=== PATIENT | male | born 1995 | race Two or more races ===

== ENCOUNTER 2016-11-25 19:52 | Emergency (ER) | payer OTHER ==
[~2016-11-25] VITALS: Ht 165.1 cm; Wt 72.6 kg
[2016-11-25] MEDS ORDERED: fentaNYL PF VIAL 100 MCG/2 ML VIAL IV PRN (20:30)
[2016-11-25 20:33] LABS: BASO % 0 % (0-3); EOS % 0 % (0-3); HEMATOCRIT 39.3 % (39.0-53.0); HEMOGLOBIN 13.5 g/dL (13.0-17.5); LYMPH # 1.2 x10^3/uL (1.0-4.8); LYMPH % 10 % (24-48); MEAN CORPUSCULAR HEMOGLOBIN 27 pg (25-35); MEAN CORPUSCULAR HGB CONC 34 g/dL (31-37); MEAN CORPUSCULAR VOLUME 78 fL (79-100); MONO % 9 % (0-9); NEUT % 80 % (31-73); PLATELET COUNT 206 x10^3/uL (140-400); RED BLOOD COUNT 5.08 x10^6/uL (4.30-5.70); WHITE BLOOD COUNT 11.5 x10^3/uL (4.0-11.0)
[2016-11-25 20:34] LABS: BILIRUBIN,URINE NEGATIVE (NEG); GLUCOSE,URINE NEGATIVE (NEG); NITRITE,URINE NEGATIVE (NEG); PROTEIN,URINE NEGATIVE (NEG-TRACE); UROBILINOGEN,URINE 0.2 mg/dL (0.2 mg/dL)
[2016-11-25 20:42] LABS: BACTERIA,URINE FEW /HPF (0-FEW); RBC,URINE 20-40 /HPF (0-2); SQUAMOUS EPITHELIAL CELL,UR FEW /LPF
--- NOTE | 2016-11-25 20:43 | PHYS DOC ---
Past Medical History Past Medical History: Other Additional Past Medical Histor: k stones Past Surgical History: No Surgical History Alcohol Use: Occasionally Drug Use: None Adult General Chief Complaint Chief Complaint: ABDOMINAL PAIN HPI HPI Patient is a 21 year old male brought to the ED by family members with a complaint of left flank pain which began today and is a 10 out of 10. Patient had a kidney stone one time about a year ago and this reminds him of that pain. Patient has had no vomiting or diarrhea. The pain is in the left flank and radiates somewhat to the left mid to low abdomen. He's had no urinary complaints. No fever. Patient does not speak [place] but a family member translates at the bedside. Review of Systems Review of Systems Constitutional: Denies fever or chills [] Eyes: Denies change in visual acuity, redness, or eye pain [] HENT: Denies nasal congestion or sore throat [] Respiratory: Denies cough or shortness of breath [] Cardiovascular: Denies chest pain GI: As in history of present illness : Denies dysuria or hematuria [] Musculoskeletal: Denies back pain or joint pain [] Integument: Denies rash or skin lesions [] Neurologic: Denies headache, focal weakness or sensory changes [] Current Medications Current Medications Current Medications Medications (Trade) Dose Ordered Sig/Elissa Start Time Stop Time Status Last Admin Dose Admin Fentanyl Citrate (Fentanyl 2ml Vial) 50 mcg PRN Q15MIN PRN 11/25/16 20:30 11/26/16 20:29 11/25/16 20:44 50 MCG Ketorolac Tromethamine (Toradol) 30 mg 1X ONCE 11/25/16 21:00 11/25/16 21:01 DC 11/25/16 20:44 30 MG Sodium Chloride 1,000 ml @ 1,000 mls/hr Q1H 11/25/16 21:00 11/25/16 21:59 11/25/16 20:44 1,000 MLS/HR Allergies Allergies Allergies Coded Allergies Type Severity Reaction Last Updated Verified No Known Drug Allergies 11/25/16 No Physical Exam Physical Exam Constitutional: Well developed, well nourished, no acute distress, non-toxic appearance. Ambulatory, alert, mentating normally. HENT: Normocephalic, atraumatic, bilateral external ears normal, nose normal. [] Eyes: conjunctiva normal, no discharge. [] Neck: Normal range of motion, no stridor. [] Cardiovascular:Heart rate regular rhythm, no murmur [] Lungs & Thorax: Bilateral breath sounds clear to auscultation [] Abdomen: Bowel sounds normal, soft, no tenderness, no masses, no pulsatile masses. Abdomen entirely benign without tenderness at all. Skin: Warm, dry, no erythema, no rash. [] Back: No tenderness, no CVA tenderness. [] Extremities: No tenderness, no cyanosis, no clubbing, ROM intact, no edema. [] Neurologic: Alert and oriented X 3, normal motor function, normal sensory function, no focal deficits noted. [] Current Patient Data Vital Signs Vital Signs Date Time Temp Pulse Resp B/P (MAP) Pulse Ox O2 Delivery O2 Flow Rate FiO2 11/25/16 20:44 16 100 Room Air 11/25/16 20:01 99.1 95 138/82 (100) 99.1 Lab Values Laboratory Tests Test 11/25/16 20:08 11/25/16 20:18 Urine Collection Type Unknown Urine Color Yellow Urine Clarity Clear Urine pH 6.0 Urine Specific Arnold 1.025 Urine Protein Negative mg/dL (NEG-TRACE) Urine Glucose (UA) Negative mg/dL (NEG) Urine Ketones (Stick) Negative mg/dL (NEG) Urine Blood Moderate (NEG) Urine Nitrite Negative (NEG) Urine Bilirubin Negative (NEG) Urine Urobilinogen Dipstick 0.2 mg/dL (0.2 mg/dL) Urine Leukocyte Esterase Small (NEG) Urine RBC 20-40 /HPF (0-2) Urine WBC 1-4 /HPF (0-4) Urine Squamous Epithelial Cells Few /LPF Urine Bacteria Few /HPF (0-FEW) Urine Mucus Marked /LPF White Blood Count 11.5 x10^3/uL (4.0-11.0) H Red Blood Count 5.08 x10^6/uL (4.30-5.70) Hemoglobin 13.5 g/dL (13.0-17.5) Hematocrit 39.3 % (39.0-53.0) Mean Corpuscular Volume 78 fL (79-100) L Mean Corpuscular Hemoglobin 27 pg (25-35) Mean Corpuscular Hemoglobin Concent 34 g/dL (31-37) Red Cell Distribution Width 14.0 % (11.5-14.5) Platelet Count 206 x10^3/uL (140-400) Neutrophils (%) (Auto) 80 % (31-73) H Lymphocytes (%) (Auto) 10 % (24-48) L Monocytes (%) (Auto) 9 % (0-9) Eosinophils (%) (Auto) 0 % (0-3) Basophils (%) (Auto) 0 % (0-3) Neutrophils # (Auto) 9.2 x10^3uL (1.8-7.7) H Lymphocytes # (Auto) 1.2 x10^3/uL (1.0-4.8) Monocytes # (Auto) 1.1 x10^3/uL (0.0-1.1) Eosinophils # (Auto) 0.0 x10^3/uL (0.0-0.7) Basophils # (Auto) 0.0 x10^3/uL (0.0-0.2) Sodium Level 139 mmol/L (136-145) Potassium Level 3.1 mmol/L (3.5-5.1) L Chloride Level 103 mmol/L (98-107) Carbon Dioxide Level 27 mmol/L (21-32) Anion Gap 9 (6-14) Blood Urea Nitrogen 15 mg/dL (8-26) Creatinine 0.9 mg/dL (0.7-1.3) Estimated GFR (Cockcroft-Gault) 106.5 BUN/Creatinine Ratio 17 (6-20) Glucose Level 103 mg/dL (70-99) H Calcium Level 8.7 mg/dL (8.5-10.1) Total Bilirubin 0.5 mg/dL (0.2-1.0) Aspartate Amino Transferase (AST) 22 U/L (15-37) Alanine Aminotransferase (ALT) 21 U/L (16-63) Alkaline Phosphatase 80 U/L (46-116) Total Protein 7.5 g/dL (6.4-8.2) Albumin 4.1 g/dL (3.4-5.0) Albumin/Globulin Ratio 1.2 (1.0-1.7) Laboratory Tests 11/25/16 20:18 Laboratory Tests 11/25/16 20:18 EKG EKG [] Radiology/Procedures Radiology/Procedures CT scan of the abdomen and pelvis read by the radiologist. 6 mm stone in the left proximal ureter with moderate [place]. [] Course & Med Decision Making Course & Med Decision Making Pertinent Labs and Imaging studies reviewed. (See chart for details) 21-year-old male with a history of one kidney stone in the past presents with left flank pain radiating to the left mid abdomen that began today. I discussed with the patient and family members that we will give him some IV fluids, IV pain medicine, check a CT scan and some labs. They're agreeable to that plan. Patient is more comfortable after his IV medications. Labs unremarkable. CT showing a 6 mm proximal left ureter stone. I discussed with the patient and his family. His aunt was interpreting. She speaks Wol[place] well and also reads Wol[place]. We discussed the options. The patient is much more comfortable. I believe outpatient follow-up is reasonable. Return precautions were given. See instructions for plan. [] Dragon Disclaimer Dragon Disclaimer This electronic medical record was generated, in whole or in part, using a voice recognition dictation system. Departure Departure Impression: Primary Impression: Left ureteral stone Additional Impression: Renal colic on left side Disposition: 01 HOME, SELF-CARE Condition: IMPROVED Referrals: FARRAH GUZMAN DO Patient Instructions: Kidney Stones, [id number] Additional Instructions: As we discussed, you have a 6 mm stone in your left ureter which is causing some amount of obstruction, meaning backup of urine into your kidney. If this stone does not pass within a week or 2, it definitely needs to be treated by a urologist. It shouldn't stay there longer than a couple of weeks. Drink plenty of fluids. Use the urine strainer to see if the stone comes out. If it does, save it for analysis. Flomax, take 1 every evening, you have had your first dose here in the emergency department. This helps relax the muscle of your ureter which helps the pain and helps the stone pass. Ibuprofen 800 mg, every 8 hours with food. This helps also relax the muscle of your ureter and might help the stone pass. Hydrocodone which is a stronger pain medicine, if you have to take this, do not work or drive. Take for more severe pain as needed. It is safe to combine all 3 of these medications if needed. Call Saturday morning to make an appointment with the urologist. Tell them you were in the emergency room and you have a kidney stone in your ureter. As we discussed, our urologist, Dr. Guzman, will not be back until November 29. Scripts Hydrocodone/Apap 5-325 (NORCO 5-325 TABLET) 1 Each Tablet 1-2 TAB PO Q4-6HRS for kidney stone pain, #20 TAB Prov: ROHAN MORENO MD 11/25/16 Ibuprofen (IBUPROFEN) 800 Mg Tablet 800 MG PO Q8HRS Y for kidney stone for 14 Days, #42 TAB Prov: ROHAN MORENO MD 11/25/16 Tamsulosin Hcl (FLOMAX) 0.4 Mg Cap.er.24h 0.4 MG PO DAILY for kidney stone for 14 Days, #14 TAB Prov: ROHAN MORENO MD 11/25/16 Problem Qualifiers ROHAN MORENO MD Nov 25, 2016 20:43
[2016-11-25 20:50] LABS: CALCIUM 8.7 mg/dL (8.5-10.1); CREATININE 0.9 mg/dL (0.7-1.3); GFR 106.5; POTASSIUM 3.1 mmol/L (3.5-5.1)
--- NOTE | 2016-11-25 20:53 | RAD ---
CT ABDOMEN PELVIS WO CONTRAST dated 11/25/2016 8:30 PM Indication:Left flank pain Comparison: No comparison is available. Technique: Contiguous axial imaging of the abdomen and pelvis performed without the administration of intravenous contrast. One or more of the following individualized dose reduction techniques were utilized for this examination: 1. Automated exposure control 2. Adjustment of the mA and/or kV according to patient size 3. Use of iterative reconstruction technique Findings: Limited images of the lung bases are clear. Heart size within normal limits. No pleural or pericardial effusion. Solid abdominal viscera are not well evaluated in the absence of contrast material. No apparent attenuation abnormality of the liver or spleen. Pancreas, adrenal glands and gallbladder are unremarkable. 6 mm calcific stone at the proximal left ureter/UPJ with moderate hydronephrosis. 3 mm calcific stone at the left kidney midpole 2 additional calculi at the lower pole measuring 5 and 3 mm in size each. No right-sided renal or ureteral stone. No right-sided hydronephrosis. Unopacified GI tract normal in caliber and contour. No focal bowel wall thickening. No inflammatory stranding in the mesentery. No ascites or lymphadenopathy. Abdominal aorta is nondistended urinary bladder. No calcific bladder stone. No free fluid or lymphadenopathy. Bone windows show no acute findings. IMPRESSION: 1. 6mm calcific stone at the proximal left ureter/UPJ with moderate obstructive uropathy. 2. Left-sided nephrolithiasis. Electronically signed by: Willis Hercules MD (11/25/2016 8:50 PM)
[2016-11-25 20:56] LABS: ALBUMIN 4.1 g/dL (3.4-5.0); ALBUMIN/GLOBULIN RATIO 1.2 (1.0-1.7); TOTAL BILIRUBIN 0.5 mg/dL (0.2-1.0); TOTAL PROTEIN 7.5 g/dL (6.4-8.2)
[2016-11-25] MEDS ORDERED: KETOROLAC TROMETHAMINE 30 MG/ML INJ. IV ONE (21:00)
[2016-11-25] MEDS ORDERED: IV NORMAL SALINE 1000ML BAG 1,000 ML IV SCH (21:00)
[2016-11-25] MEDS ORDERED: HYDR-971 PO (21:17)
[2016-11-25] MEDS ORDERED: TAMS0.4C97 PO (21:17)
[2016-11-25] MEDS ORDERED: IBUP-1060 PO (21:17)
[2016-11-25 21:18] VITALS: BP 122/74
[2016-11-25] MEDS ORDERED: TAMSULOSIN 0.4 MG CAP.ER.24H. PO ONE (21:30)
== END 2016-11-25 21:27 | disposition home or self-care (01) ==
LOC: ER 19:52
DX: N20.2 Calculus of kidney with calculus of ureter (principal)
CPT/HCPCS: 36415; 74176; 80053; 81001; 85027; 96361; 96374; 96375; 99285; J1885; J3010; J7030